=== PATIENT | male | born 1950 ===

== ENCOUNTER → 2019-08-05 | Outpatient (CLI) | payer MEDICARE ==
[2019-08-07 06:29] LABS: Stool Occult Bld Immuno 1 Negative (NEGATIVE)
== END | disposition home or self-care (01) ==
LOC: LAB 20:10 → LAB SHORT 20:10
PROVIDERS: Nurse Practitioner Family
DX: Z12.11 Encounter for screening for malignant neoplasm of colon (principal)
CPT/HCPCS: G0328

== ENCOUNTER 2020-02-08 07:24 | Day surgery (SDC) | payer MEDICARE ==
[~2020-02-08] VITALS: Ht 170.2 cm; Wt 85.0 kg
[2020-02-08] MEDS ORDERED: HAIR, SKIN AND1 EAC1 (08:21)
[2020-02-08] MEDS ORDERED: CARV3.125 (08:21)
[2020-02-08] MEDS ORDERED: AMLO5 (08:22)
[2020-02-08] MEDS ORDERED: LOSA25 (08:22)
[2020-02-08] MEDS ORDERED: Garlic1 EAC1 (08:22)
[2020-02-08] MEDS ORDERED: ADRENOID CAPSU1 EACH (08:22)
[2020-02-08] MEDS ORDERED: FOLI400 (08:23)
[2020-02-08] MEDS ORDERED: ZOCOR20 MG (08:23)
[2020-02-08] MEDS ORDERED: LEVE500 (08:23)
--- NOTE | 2020-02-08 10:22 | NUR ---
02/08/20 1022 Annetta Garcia 1000 PT TO STEPDOWN, UNABLE TO GET BP READING. PT TALKING WITH STAFF, ANSWERING QUESTIONS APPROPRIATELY. DR. STEWART AND DR. OCHOA AWARE. ATTMEPTING TO GET BP. 1016 BP READING 67/35, PT CONTINUES TO TALK AND ANSWER QUESTIONS APPROPRIATELY. DR. STEWART AND DR. OCHOA AWARE. WILL CONTINUE TO MONITOR.
--- NOTE | 2020-02-08 12:21 | NUR ---
02/08/20 1221 Manisha Boone LATE ENTRY MAC WITH DR. STEWART. PT. WITH LOW BP, DR. STEWART GAVE ROBINUL & EPHEDRINE TO PT. UNABLE TO REGISTER BP'S IN ENDO ROOM AFTER MEDS GIVEN. PT. AWAKE AFTER PROCEDURE. PT. PALE. PT. DENIES PAIN. PT. VERBALIZES NEEDING TO USE BR. ENC. PT. TO PASS OUT AIR IF NEEDED TO.
--- NOTE | 2020-02-08 12:40 | NUR ---
02/08/20 1240 Manisha Boone LATE ENTRY PT. LUNG SOUNDS IN PREOP WERE INSPIRATORY/EXPIRATORY WHEEZES. PT. DENIED SOB. PT. USES NEBULIZERS AT HOME BUT DIDN'T USE TODAY. DR. STEWART & DR. OCHOA AWARE. NO ORDERS GIVEN. PT.SPEAKS BUT IS DEAF. PT. READS LIPS. PT.'S FRIEND IN ROOM WITH HIM ALSO RESPONDING TO QUESTIONS FOR PT. & HELPING HIM READ LIPS FOR STAFF SPEAKING WITH PT.
== END 2020-02-08 11:39 | disposition home or self-care (01) ==
LOC: ORSCSDS 07:24
PROVIDERS: Internal Medicine Gastroenterology
PROC: 0DB78ZX Excision of Stomach, Pylorus, Via Natural or Artificial Opening Endoscopic, Diagnostic (ICD-10-PCS; principal; 2020-02-08 09:00)
PROC: 0DBM8ZX Excision of Descending Colon, Via Natural or Artificial Opening Endoscopic, Diagnostic (ICD-10-PCS; principal; 2020-02-08 09:00)
PROC: 0DBK8ZX Excision of Ascending Colon, Via Natural or Artificial Opening Endoscopic, Diagnostic (ICD-10-PCS; principal; 2020-02-08 09:00)
PROC: 0DBL8ZX Excision of Transverse Colon, Via Natural or Artificial Opening Endoscopic, Diagnostic (ICD-10-PCS; principal; 2020-02-08 09:00)
PROC: 0DBH8ZX Excision of Cecum, Via Natural or Artificial Opening Endoscopic, Diagnostic (ICD-10-PCS; principal; 2020-02-08 09:00)
PROC: 0DBP8ZX Excision of Rectum, Via Natural or Artificial Opening Endoscopic, Diagnostic (ICD-10-PCS; principal; 2020-02-08 09:00)
DX: K62.5 Hemorrhage of anus and rectum (principal); K21.9 Gastro-esophageal reflux disease without esophagitis; D12.0 Benign neoplasm of cecum; D12.2 Benign neoplasm of ascending colon; D12.3 Benign neoplasm of transverse colon; D12.4 Benign neoplasm of descending colon; K63.5 Polyp of colon; K62.1 Rectal polyp; K44.9 Diaphragmatic hernia without obstruction or gangrene; K29.80 Duodenitis without bleeding; K29.70 Gastritis, unspecified, without bleeding; K57.30 Diverticulosis of large intestine without perforation or abscess without bleeding; K64.1 Second degree hemorrhoids; I10 Essential (primary) hypertension; E03.9 Hypothyroidism, unspecified; J44.9 Chronic obstructive pulmonary disease, unspecified; F17.210 Nicotine dependence, cigarettes, uncomplicated; Z79.899 Other long term (current) drug therapy
CPT/HCPCS: 74018; 88305; 88342; J2704; J7120

== ENCOUNTER 2021-01-28 07:40 | Day surgery (SDC) | payer MEDICARE ==
[~2021-01-28] VITALS: Ht 172.7 cm; Wt 84.0 kg
[~2021-01-28 07:40] MED LIST: ADRENOID CAPSU1 EACH; AMLO5; CALCIUM 500 +1 EAC4 PO; CARV6.25 PO; COMBIVENT RESPIM4 G1; EUTHYROX125 MCG PO; FOLI1 PO; FOLI400; Garlic1 EAC1; HAIR, SKIN AND1 EAC1; LEVE500; LOSARTAN-HCTZ1 EAC6 PO; Simvastatin40 MG PO; TUDORZA PRESS400 MC1 IH; Vitamin B-121000 MCG PO
== END 2021-01-28 12:05 | disposition home or self-care (01) ==
LOC: ORSCSDS 07:40
PROVIDERS: Internal Medicine Gastroenterology
PROC: 0DBH8ZX Excision of Cecum, Via Natural or Artificial Opening Endoscopic, Diagnostic (ICD-10-PCS; principal; 2021-01-28 11:45)
PROC: 0DBM8ZX Excision of Descending Colon, Via Natural or Artificial Opening Endoscopic, Diagnostic (ICD-10-PCS; principal; 2021-01-28 11:45)
PROC: 0DBL8ZX Excision of Transverse Colon, Via Natural or Artificial Opening Endoscopic, Diagnostic (ICD-10-PCS; principal; 2021-01-28 11:45)
PROC: 0DBN8ZX Excision of Sigmoid Colon, Via Natural or Artificial Opening Endoscopic, Diagnostic (ICD-10-PCS; principal; 2021-01-28 11:45)
DX: Z12.11 Encounter for screening for malignant neoplasm of colon (principal); Z86.010 Personal history of colon polyps; D12.0 Benign neoplasm of cecum; K63.5 Polyp of colon; I10 Essential (primary) hypertension; I25.10 Atherosclerotic heart disease of native coronary artery without angina pectoris; K74.60 Unspecified cirrhosis of liver; K64.8 Other hemorrhoids; K57.30 Diverticulosis of large intestine without perforation or abscess without bleeding; Z79.899 Other long term (current) drug therapy
CPT/HCPCS: 88305; J2704; J7120

== ENCOUNTER → 2022-06-01 | Outpatient (CLI) | payer MEDICARE ==
[2022-06-02 10:52] LABS: BASOPHILS ABSOLUTE AUTO 0.05 K/mm3 (0.00-0.23); BASOPHILS PERCENT AUTO 1 % (0-2); EOSINOPHILS ABSOLUTE AUTO 0.26 K/mm3 (0.00-0.68); EOSINOPHILS PERCENT AUTO 6 % (0-6); Hematocrit 43.1 % (37.0-53.0); Hemoglobin 15.2 g/dL (13.5-17.5); IMMATURE GRAN ABSOLUTE AUTO 0.01 K/mm3 (0.00-0.10); IMMATURE GRAN PERCENT AUTO 0 % (0-1); LYMPHOCYTES ABSOLUTE AUTO 1.33 K/mm3 (0.84-5.20); LYMPHOCYTES PERCENT AUTO 28 % (21-46); MONOCYTES ABSOLUTE AUTO 0.55 K/mm3 (0.16-1.47); MONOCYTES PERCENT AUTO 12 % (4-13); Mean Corpuscular HGB 30.5 pg (26.0-34.0); Mean Corpuscular HGB Conc 35.3 g/dL (31.5-36.5); Mean Corpuscular Volume 86 fL (80-100); Mean Platelet Volume 10.6 fL (9.1-12.4); NEUTROPHILS PERCENT AUTO 53 % (41-73); Platelet Count 201 K/mm3 (150-400); RDW Coefficient Variation 13.9 % (11.7-14.2); RDW Standard Deviation 44.6 fL (35.1-46.3); Red Blood Cell Count 4.99 M/mm3 (4.30-5.90)
[2022-06-02 11:31] LABS: Alanine Aminotransfer (ALT/SGP 23 U/L (12-78); Albumin, Blood 4.1 g/dL (3.4-5.0); Alk Phos 109 U/L (50-136); Anion Gap 9 mmol/L (6-16); Aspartate Aminotrans (AST/SGOT 17 U/L (12-37); Bilirubin, Total 0.6 mg/dL (0.1-1.0); Blood Urea Nitrogen 10 mg/dL (8-24); Bun/Creatinine Ratio 9.3 (12.0-20.0); CHOL/HDL RATIO 2.7; CO2, Blood 25 mmol/L (21-32); Calcium, Blood 9.5 mg/dL (8.5-10.1); Chloride, Blood 97 mmol/L (98-108); Cholesterol 170 mg/dL (50-200); Creatinine, Blood 1.08 mg/dL (0.60-1.20); Glomerular Filtration Rate 73 (60-); Glucose, Blood 111 mg/dL (70-99); HDL Cholesterol 64 mg/dL (>39); LDL/HDL RATIO 1.4; Low Density Lipoprotein Chol 90 mg/dL (0-110); Potassium, Blood 4.1 mmol/L (3.5-5.5); Sodium, Blood 131 mmol/L (136-145); Total Protein, Blood 8.1 g/dL (6.4-8.2); Triglycerides 82 mg/dL (30-160); Very Low Density Lipoprot Chol 16 mg/dL (6-32)
== END | disposition home or self-care (01) ==
LOC: LAB SHORT 13:30
PROVIDERS: Family Medicine
DX: Z11.59 Encounter for screening for other viral diseases (principal); Z79.899 Other long term (current) drug therapy
CPT/HCPCS: 80053; 80061; 85025; 86803

== ENCOUNTER → 2023-03-15 | Outpatient (CLI) | payer MEDICARE ==
[2023-03-15 19:51] LABS: BASOPHILS ABSOLUTE AUTO 0.05 K/mm3 (0.00-0.23); BASOPHILS PERCENT AUTO 1 % (0-2); EOSINOPHILS ABSOLUTE AUTO 0.23 K/mm3 (0.00-0.68); EOSINOPHILS PERCENT AUTO 5 % (0-6); Hematocrit 43.2 % (37.0-53.0); Hemoglobin 15.1 g/dL (13.5-17.5); IMMATURE GRAN ABSOLUTE AUTO 0.01 K/mm3 (0.00-0.10); IMMATURE GRAN PERCENT AUTO 0 % (0-1); LYMPHOCYTES ABSOLUTE AUTO 1.34 K/mm3 (0.84-5.20); LYMPHOCYTES PERCENT AUTO 28 % (21-46); MONOCYTES ABSOLUTE AUTO 0.55 K/mm3 (0.16-1.47); MONOCYTES PERCENT AUTO 12 % (4-13); Mean Corpuscular HGB 30.7 pg (26.0-34.0); Mean Corpuscular Volume 88 fL (80-100); Mean Platelet Volume 10.6 fL (9.1-12.4); NEUTROPHILS ABSOLUTE AUTO 2.61 K/mm3 (1.96-9.15); NEUTROPHILS PERCENT AUTO 55 % (41-73); Platelet Count 242 K/mm3 (150-400); RDW Coefficient Variation 13.7 % (11.7-14.2); RDW Standard Deviation 44.4 fL (35.1-46.3); Red Blood Cell Count 4.92 M/mm3 (4.30-5.90); White Blood Cell Count 4.79 K/mm3 (4.00-11.30)
[2023-03-16 16:19] LABS: Alanine Aminotransfer (ALT/SGP 17 U/L (12-78); Albumin, Blood 4.1 g/dL (3.4-5.0); Albumin/Globulin Ratio 0.9 (0.8-1.8); Alk Phos 116 U/L (50-136); Anion Gap 3 mmol/L (6-16); Aspartate Aminotrans (AST/SGOT 7 U/L (12-37); Bilirubin, Total 0.8 mg/dL (0.1-1.0); Blood Urea Nitrogen 12 mg/dL (8-24); Bun/Creatinine Ratio 12.2 (12.0-20.0); CHOL/HDL RATIO 2.6; CO2, Blood 30 mmol/L (21-32); Calcium, Blood 9.7 mg/dL (8.5-10.1); Chloride, Blood 98 mmol/L (98-108); Cholesterol 188 mg/dL (50-200); Creatinine, Blood 0.99 mg/dL (0.60-1.20); Globulin, Blood 4.6 g/dL (2.2-4.0); Glomerular Filtration Rate 80 (60-); Glucose, Blood 115 mg/dL (70-99); HDL Cholesterol 71 mg/dL (>39); LDL/HDL RATIO 1.4; Low Density Lipoprotein Chol 102 mg/dL (0-110); Potassium, Blood 4.1 mmol/L (3.5-5.5); Sodium, Blood 131 mmol/L (136-145); Total Protein, Blood 8.7 g/dL (6.4-8.2); Triglycerides 75 mg/dL (30-160); Very Low Density Lipoprot Chol 15 mg/dL (6-32)
== END | disposition home or self-care (01) ==
LOC: LAB SHORT 11:30 → LAB 11:30
PROVIDERS: Family Medicine
DX: Z51.81 Encounter for therapeutic drug level monitoring (principal); Z79.899 Other long term (current) drug therapy
CPT/HCPCS: 80053; 80061; 84443; 85025

== ENCOUNTER → 2023-07-29 | Outpatient (CLI) | payer MEDICARE | END | disposition home or self-care (01) | LOC: LAB SHORT 17:24 → LAB 17:24 | DX: E03.9 Hypothyroidism, unspecified (principal) | CPT/HCPCS: 84443 ==

== ENCOUNTER → 2024-08-07 | Outpatient (CLI) | payer MEDICARE ==
[2024-08-07 19:23] LABS: BASOPHILS ABSOLUTE AUTO 0.05 K/mm3 (0.00-0.23); BASOPHILS PERCENT AUTO 1 % (0-2); EOSINOPHILS ABSOLUTE AUTO 0.21 K/mm3 (0.00-0.68); EOSINOPHILS PERCENT AUTO 5 % (0-6); Hematocrit 42.8 % (37.0-53.0); Hemoglobin 15.3 g/dL (13.5-17.5); IMMATURE GRAN ABSOLUTE AUTO 0.01 K/mm3 (0.00-0.10); IMMATURE GRAN PERCENT AUTO 0 % (0-1); LYMPHOCYTES ABSOLUTE AUTO 1.44 K/mm3 (0.84-5.20); LYMPHOCYTES PERCENT AUTO 34 % (21-46); MONOCYTES ABSOLUTE AUTO 0.46 K/mm3 (0.16-1.47); MONOCYTES PERCENT AUTO 11 % (4-13); Mean Corpuscular HGB 30.9 pg (26.0-34.0); Mean Corpuscular HGB Conc 35.7 g/dL (31.5-36.5); Mean Corpuscular Volume 87 fL (80-100); Mean Platelet Volume 10.9 fL (9.1-12.4); NEUTROPHILS ABSOLUTE AUTO 2.04 K/mm3 (1.96-9.15); NEUTROPHILS PERCENT AUTO 49 % (41-73); Platelet Count 219 K/mm3 (150-400); RDW Coefficient Variation 13.2 % (11.7-14.2); RDW Standard Deviation 41.4 fL (35.1-46.3); Red Blood Cell Count 4.95 M/mm3 (4.30-5.90); White Blood Cell Count 4.21 K/mm3 (4.00-11.30)
[2024-08-07 21:14] LABS: Alanine Aminotransfer (ALT/SGP 15 U/L (12-78); Albumin, Blood 3.8 g/dL (3.4-5.0); Albumin/Globulin Ratio 0.9 (0.8-1.8); Alk Phos 113 U/L (50-136); Anion Gap 13 mmol/L (3-11); Aspartate Aminotrans (AST/SGOT 12 U/L (12-37); Bilirubin, Total 0.5 mg/dL (0.1-1.0); Blood Urea Nitrogen 12 mg/dL (8-24); Bun/Creatinine Ratio 13.8 (12.0-20.0); CHOL/HDL RATIO 2.8; CO2, Blood 24 mmol/L (21-32); Calcium, Blood 9.8 mg/dL (8.5-10.1); Chloride, Blood 99 mmol/L (98-108); Cholesterol 184 mg/dL (50-200); Creatinine, Blood 0.87 mg/dL (0.60-1.20); Free Thyroxine 2.23 ng/dL (0.70-1.60); Globulin, Blood 4.3 g/dL (2.2-4.0); Glomerular Filtration Rate 91 (60-); Glucose, Blood 109 mg/dL (70-99); HDL Cholesterol 65 mg/dL (>39); LDL/HDL RATIO 1.6; Low Density Lipoprotein Chol 105 mg/dL (0-110); Potassium, Blood 3.9 mmol/L (3.5-5.5); Sodium, Blood 132 mmol/L (136-145); Thyroid Stimulating Hormone 0.699 uIU/mL (0.360-4.800); Total Protein, Blood 8.1 g/dL (6.4-8.2); Triglycerides 68 mg/dL (30-160); Very Low Density Lipoprot Chol 13 mg/dL (6-32)
== END ==
LOC: LAB 18:41 → LAB SHORT 18:41
PROVIDERS: Nurse Practitioner Family
DX: I10 Essential (primary) hypertension (principal)
CPT/HCPCS: 80053; 80061; 84439; 84443; 85025